=== PATIENT | female | born 1985 | race Caucasian/White ===

== ENCOUNTER 2016-09-07 12:42 | Day surgery (SDC) | payer OTHER ==
[2016-09-07] VITALS (16 sets, daily range): BP systolic 111–136; BP diastolic 53–69; PULSE 64–92; RESP 16–24; Ht 154.9 cm; Wt 94.0 kg
[~2016-09-07] VITALS: Ht 154.9 cm; Wt 94.0 kg
[~2016-09-07 12:42] MED LIST: DENIES
[2016-09-07 13:46] LABS: BASOPHILS % 0.4 % (0.0-2.0); EOSINOPHILS # 0.1 10^3/ul (0.0-0.5); EOSINOPHILS % 1.3 % (0.0-7.0); HEMATOCRIT 39.4 % (37.0-47.0); HEMOGLOBIN 13.6 g/dl (12.0-16.0); LYMPHOCYTES # 2.4 10^3/ul (0.8-2.9); LYMPHOCYTES % 33.8 % (15.0-51.0); MEAN CORPUSCULAR HEMOGLOBIN 31.7 pg (29.0-33.0); MEAN CORPUSCULAR HGB CONC 34.5 g/dl (32.0-37.0); MEAN CORPUSCULAR VOLUME 91.8 fl (82.0-101.0); MEAN PLATELET VOLUME 8.7 fl (7.4-10.4); MONOCYTE # 0.3 10^3/ul (0.3-0.9); MONOCYTES % 4.9 % (0.0-11.0); NEUTROPHIL # 4.2 10^3/ul (1.6-7.5); NEUTROPHILS % 59.6 % (39.0-77.0); PLATELET COUNT 251 10^3/UL (140-440); RED BLOOD COUNT 4.29 10^6/ul (4.20-5.40); RED CELL DISTRIBUTION WIDTH 12.5 % (11.5-14.5); UNCORRECTED WBC 7.1 10^3/ul (4.8-10.8); WHITE BLOOD COUNT 7.1 10^3/ul (4.8-10.8)
[2016-09-07 13:50] LABS: CONDITION 1
[2016-09-07 13:55] LABS: INR 0.92; PROTIME 12.4 Sec (12.2-14.2)
[2016-09-07 13:56] LABS: CALCIUM 9.1 mg/dl (8.4-10.2); CREATININE 0.71 mg/dl (0.44-1.00); PARTIAL THROMBOPLASTIN TIME 25.7 Sec (25.0-35.0); POTASSIUM 4.1 mmol/L (3.5-5.1)
[2016-09-07] MEDS ORDERED: ROCURONIUM 50 MG INJ ONE (16:49)
[2016-09-07] MEDS ORDERED: GLYCOPYRROLATE 0.4 MG INJ ONE (16:49)
[2016-09-07] MEDS ORDERED: SUCCINYLCHOLINE CHLORIDE 100 MG/5 ML SYG IV ONE (16:49)
[2016-09-07] MEDS ORDERED: LIDOCAINE 2% (SDV) 5 ML INJ ONE (16:49)
[2016-09-07] MEDS ORDERED: NEOSTIGMINE 3 MG/3 ML SYRINGE ONE ×2 (16:49→16:53)
[2016-09-07] MEDS ORDERED: PROPOFOL 20 ML ONE (16:49)
[2016-09-07] MEDS ORDERED: CEFAZOLIN 1 GM INJ ONE (16:50)
[2016-09-07] MEDS ORDERED: MEPERIDINE 100 MG INJ ONE (16:53)
[2016-09-07] MEDS ORDERED: ONDANSETRON 4 MG INJ ONE (16:55)
[2016-09-07] MEDS ORDERED: METOCLOPRAMIDE 10 MG INJ ONE (16:55)
[2016-09-07] MEDS ORDERED: ONDANSETRON 4 MG INJ IV PRN (17:00)
[2016-09-07] MEDS ORDERED: MIDAZOLAM 1 MG/ML 2 ML INJ IV PRN (17:00)
[2016-09-07] MEDS ORDERED: EPHEDrine SULFATE 50 MG/5 ML SYG IV PRN (17:00)
[2016-09-07] MEDS ORDERED: MEPERIDINE 25 MG INJ IV PRN (17:00)
[2016-09-07] MEDS ORDERED: DIPHENHYDRAMINE 50 MG INJ IV PRN (17:00)
[2016-09-07] MEDS ORDERED: FENTAnyl 50 MCG/ML VIAL IV PRN ×2 (17:00)
[2016-09-07] MEDS ORDERED: hydrALAzine 20 MG INJ IV PRN (17:00)
[2016-09-07] MEDS ORDERED: LABETALOL HCL 20MG INJ IV PRN (17:00)
[2016-09-07] MEDS ORDERED: METOCLOPRAMIDE 10 MG INJ IV PRN (17:00)
[2016-09-07] MEDS ORDERED: HYDROmorphONE (0.2 MG/ML) 10ML SYG IV PRN (17:00)
[2016-09-07] MEDS ORDERED: morphine (1 MG/ML) 10ML SYRINGE IV PRN ×2 (17:00)
[2016-09-07] MEDS ORDERED: BUPIVACAINE 0.25% (MPF) 30 ML INJ ONE (17:27)
[2016-09-07] MEDS ORDERED: HYDROCODONE/APAP (5/325) TAB PO ONE (18:00)
[2016-09-07] MEDS: HYDROmorphONE (0.2 MG/ML) 10ML SYG IV PRN ×2 (18:29→18:53)
--- NOTE | 2016-09-07 18:50 | OPR ---
DATE OF OPERATION: 09/07/2016 INDICATION: This is a 30-year-old female with symptomatic gallstones. She requests surgical excisi on of her gallbladder. Risks, alternatives, benefits, and personnel were discussed with the patient . Patient expresses understanding and consents to the operation. PREOPERATIVE DIAGNOSIS: Symptomatic gallstones. POSTOPERATIVE DIAGNOSIS: Symptomatic gallstones. OPERATION: Laparoscopic cholecystectomy. SURGEON: Maico Rene MD RESEARCH CHEF: Greg Martinez MD SPECIMENS: Gallbladder. COMPLICATIONS: None. ANESTHESIA: General. PROCEDURE: The patient was taken to the OR, and prepped and draped in usual sterile fashion. Surgi delvin timeout was performed. IV antibiotics were given. Infraumbilical incision was made transversely with a 15 blade. Dissection cautery was carried down to the fascia, which was divided with curved May scissors. An 0 Vicryl U-stitch was placed in the fascia. Balloon Bhupendra trocar was introduced. Pneumoperitoneum established. Midepigastric 12-mm o ptical trocar right upper quadrant, right upper flank, 5-mm optical trocars were placed under direct visualization. Upon initial inspection, there were some adhesions to the gallbladder, which were t aken down bluntly. The cystic duct was identified. The critical view was established. The cystic duct was divided using a 35-mm Endo-TIM vascular load stapler. Clips were placed proximal and dista l to the cystic artery and divided. Gallbladder was taken off the gallbladder bed. There was good hemostasis. Gallbladder was retrieved using EndoCatch bag. Ports were removed under direct visuali zation. Then, 0 Vicryl U-stitch was tied down. Skin was closed with skin gretchen. Local anesthesi a was injected. Dry dressings were applied. Dictated By: MAICO RAYMOND/SHAN Conf#: [id number] DID#: [id number]
[2016-09-08] MEDS ORDERED: SOD CHLORIDE 0.9% 1,000 ML IV SCH (06:00)
[2016-09-08] MEDS ORDERED: CEFAZOLIN 2 GM/50 ML (PMX) 50 ML IVPB SCH (06:00)
== END 2016-09-07 20:00 | disposition home or self-care (01) ==
LOC: SDS 12:42
PROVIDERS: ATTEND Surgery
DX: K80.10 Calculus of gallbladder with chronic cholecystitis without obstruction (principal)
CPT/HCPCS: 47562; 80048; 84703; 85025; 85610; 85730; 88304; J0330; J0690; J1170; J2175; J2405; J2710; J2765; J3010; Z7512; Z7610